=== PATIENT | male | born 1970 | race Hispanic/Latino ===

== ENCOUNTER 2017-01-27 08:02 | Outpatient (CLI) | payer SELFPAY ==
[2017-01-27] MEDS ORDERED: XYLOCAINE TOPICAL 2% ONE (08:23)
[2017-01-27] MEDS ORDERED: XYLOCAINE TOPICAL 4% TP ONE ×2 (08:23→08:58)
[2017-01-27] MEDS ORDERED: XYLOCAINE TOPICAL 2% TP ONE (08:58)
== END 2017-01-27 08:03 | disposition home or self-care (01) ==
LOC: WOUND 08:02
PROVIDERS: ATTEND Surgery
DX: L97.322 Non-pressure chronic ulcer of left ankle with fat layer exposed (principal)
CPT/HCPCS: 11042; G0463

== ENCOUNTER 2017-02-10 08:07 | Outpatient (CLI) | payer OTHER ==
[2017-02-10] MEDS ORDERED: XYLOCAINE TOPICAL 4% TP ONE ×2 (08:21→08:30)
[2017-02-10] MEDS ORDERED: XYLOCAINE TOPICAL 2% ONE (08:21)
[2017-02-10] MEDS ORDERED: XYLOCAINE TOPICAL 2% TP ONE (08:30)
== END 2017-02-10 08:08 | disposition home or self-care (01) ==
LOC: WOUND 08:07
PROVIDERS: ATTEND Surgery
DX: S91.002D Unspecified open wound, left ankle, subsequent encounter (principal); X58.XXXD Exposure to other specified factors, subsequent encounter

== ENCOUNTER 2017-02-16 07:59 | Outpatient (CLI) | payer OTHER ==
[2017-02-16] MEDS ORDERED: XYLOCAINE TOPICAL 4% TP ONE (08:10)
== END 2017-02-16 08:00 | disposition home or self-care (01) ==
LOC: WOUND 07:59
PROVIDERS: ATTEND Surgery
DX: L97.322 Non-pressure chronic ulcer of left ankle with fat layer exposed (principal)

== ENCOUNTER 2017-02-24 07:59 | Outpatient (CLI) | payer OTHER ==
[2017-02-24] MEDS ORDERED: XYLOCAINE TOPICAL 4% TP ONE (09:00)
== END 2017-02-24 08:00 | disposition home or self-care (01) ==
LOC: WOUND 07:59
PROVIDERS: ATTEND Surgery
DX: L97.322 Non-pressure chronic ulcer of left ankle with fat layer exposed (principal)

== ENCOUNTER 2017-03-03 07:55 | Outpatient (CLI) | payer OTHER ==
[2017-03-03] MEDS ORDERED: XYLOCAINE TOPICAL 4% TP ONE ×2 (08:19→08:23)
== END 2017-03-03 07:56 | disposition home or self-care (01) ==
LOC: WOUND 07:55
PROVIDERS: ATTEND Surgery
DX: L97.322 Non-pressure chronic ulcer of left ankle with fat layer exposed (principal)

== ENCOUNTER 2017-03-03 09:01 | Outpatient (CLI) | payer OTHER ==
--- NOTE | 2017-03-03 10:28 | XRay Report ---
LEFT ANKLE: History: Trauma/pain. The bones are well mineralized with normal bony contours and joint alignment. No fractures or destructive changes are noted and the adjacent soft tissues are normal. IMPRESSION: Normal study.
--- NOTE | 2017-03-03 10:30 | XRay Report ---
LEFT FOOT: History: Trauma with pain. The bony architecture is intact. Bony alignment is normal. No soft tissue abnormalities are seen. The joint spaces appear preserved. IMPRESSION: Normal left foot.
== END 2017-03-03 09:02 | disposition home or self-care (01) ==
LOC: XRAY 09:01
PROVIDERS: ATTEND Surgery
DX: S91.302A Unspecified open wound, left foot, initial encounter (principal); X58.XXXA Exposure to other specified factors, initial encounter; Y93.89 Activity, other specified; Y92.89 Other specified places as the place of occurrence of the external cause; Y99.8 Other external cause status

== ENCOUNTER 2017-03-10 07:57 | Outpatient (CLI) | payer OTHER ==
[2017-03-10] MEDS ORDERED: XYLOCAINE TOPICAL 4% TP ONE ×2 (08:17→08:29)
== END 2017-03-10 07:58 | disposition home or self-care (01) ==
LOC: WOUND 07:57
PROVIDERS: ATTEND Surgery
DX: L97.322 Non-pressure chronic ulcer of left ankle with fat layer exposed (principal)
CPT/HCPCS: 97597

== ENCOUNTER 2017-03-24 07:57 | Outpatient (CLI) | payer OTHER | END 2017-03-24 07:58 | disposition home or self-care (01) | LOC: WOUND 07:57 | PROVIDERS: ATTEND Surgery | DX: L97.322 Non-pressure chronic ulcer of left ankle with fat layer exposed (principal) | CPT/HCPCS: 99213; G0463 ==